=== PATIENT | female | born 1975 | race Caucasian/White ===

== ENCOUNTER 2023-12-25 16:31 | Emergency (ER) | payer OTHER, SELFPAY ==
[2023-12-25 16:35] VITALS: BP 122/80
[2023-12-25 17:05] LABS: % Basophils 0.6 % (0-2); % Immature Granulocytes 0.3 % (0-0.5); % Lymphocytes 28.9 % (20.5-51.1); % Monocytes 9.5 % (1.7-9.3); % Neutrophils 58.7 % (42.2-75.2); Absolute Eosinophils 0.1 10^3/uL (0-0.7); Absolute Lymphocytes 1.9 10^3/uL (1.2-3.4); Absolute Monocytes 0.6 10^3/uL (0.1-0.6); Absolute Neutrophils 3.9 10^3/uL (1.4-6.5); Hematocrit 38.4 % (37.0-47.0); Hemoglobin 13.4 g/dL (12.0-16.0); Mean Corp Hgb Conc. 34.9 g/dL (33.0-37.0); Mean Corpuscular Hgb 34.7 pg (27.0-31.0); Mean Corpuscular Volume 99.5 fL (81.0-99.0); Mean Platelet Volume 9.2 fL (7.4-10.4); Nucleated Red Blood Cells % 0 %; Platelet Count 239 10^3/uL (130-400); Red Blood Cell Count 3.86 10^6/uL (4.20-5.40); Red Cell Dist. Width 11.5 % (11.5-14.5); White Blood Cell Count 6.6 10^3/uL (4.8-10.8)
[2023-12-25 17:09] LABS: Urine Albumin Negative (Neg - Trace); Urine Bilirubin Negative (Negative); Urine Character Clear (Clear); Urine Color Amber; Urine Glucose Negative (Negative); Urine Ketone Negative (Negative); Urine Leukocyte Negative (Negative); Urine Nitrite Negative (Negative); Urine Occult Blood Negative (Negative); Urine Urobilinogen Negative (Neg - 1+)
[2023-12-25 17:20] LABS: ALT (SGPT) 22 U/L (0-35); AST (SGOT) 34 U/L (14-36); Albumin 5.3 g/dl (3.5-5.0); Alkaline Phosphatase 50 U/L (38-126); Blood Urea Nitrogen 17 mg/dl (7-17); Calcium 10.2 mg/dl (8.4-10.2); Carbon Dioxide 28 mmol/L (22-30); Chloride 97 mmol/L (98-107); Glucose 91 mg/dl (70-99); Potassium 3.9 mmol/L (3.5-5.1); Sodium 135 mmol/L (135-145); Total Bilirubin 0.5 mg/dl (0.2-1.3); Total Protein 7.6 g/dl (6.3-8.2); eGFR > 60.00
--- NOTE | 2023-12-25 17:35 | ED.GENMED ---
History of Present Illness
General
Chief Complaint: Visual Problem
Source: patient
Exam Limitations: none
Time Seen by Provider: 12/25/23 16:56
Nursing documentation reviewed up to this point in time: agreed with
History of Present Illness
History of Present Illness:
48 yr old female presents to the ER for evaluation. She reports in her past has had intermittent episodes of monthly fatigue. She reports she believes this is related to her menstrual cycle. She also reports that that her vision has been blurry
for the past several months but worse over the past week. She feels like she has trouble focusing. Today she had an episode of left hand tingling while exercising. She denies any associated chest pain/shortness of breath.. She has a history of
hypothyroidism but is on natural thyroid medication and a uterine ablation in 2020. She is on hormone replacement therapy. She does not smoke. She does report that her sister is a drug addict and she is under a lot of stress. In addition her
sister does have history of having recent VT and stroke and that was felt to be due to drug use.
She has been to her family doctor for intermittent complaints of fatigue blurred vision however was told it was depression. She does not have a good relationship and does not like her family doctor and has been reports this is why they came to the
ER today.
Review of Systems
Review of Systems
Allergies reviewed?: Yes
All Other Systems: ROS reviewed and negative except as documented in HPI and ROS
Constitutional: Reports fatigue; Denies fever or chills
Respiratory: Reports no symptoms
Cardiac: Reports no symptoms
ABD/GI: Reports no symptoms
: Reports no symptoms
Musculoskeletal: Reports no symptoms
Skin: Reports no symptoms
Neurological: Reports other (pt had left hand tingling ); Denies headache
Psychiatric: Reports no symptoms
Phy Exam
General Physical Exam
General Presentation: no apparent distress
General age: appears stated age
General Skin: warm and dry
General Habitus: normal
General Mental: alert
General Hydration: appears well hydrated
Eye Exam
Eye Exam: PERRL and EOMI
Eye Exam General: PERRL: bilateral and EOM intact: bilateral
Pupil Exam: Bilateral: round and reactive
Cardiovascular Exam
Cardiovascular Exam: regular rate/rhythm, no murmur and normal peripheral pulses
Pulmonary Exam
Pulmonary Exam: lungs clear and no respiratory distress
Neurological Exam
Neurological Exam: alert, oriented x3, no motor deficits, no sensory deficits and speech normal
[place] Coma Scale
Eye Opening: Spontaneous
Verbal Response: Oriented
Motor Response: Obeys Commands
GCS Total Score: 15
Cerebellar
Cerebellar Function: normal finger to nose
Musculoskeletal Exam
Musculoskeletal Exam: full ROM
Skin Exam
Skin Exam: normal color and warm/dry
Psychiatric Exam
Psychiatric Exam: normal mood/affect
Course
Orders/Labs/Results
Orders:
Orders
12/25/23 16:41
Urinalysis Reflex To Culture Urgent
Date Specimen was Collected: 12/25/23
Time Specimen was Collected: 16:42
12/25/23 16:48
Complete Blood Count/With Diff Urgent
Comprehensive Metabolic Panel Urgent
Free T4 Urgent
TSH Reflex To Free T4 Urgent
12/25/23 17:34
CT Head W/o Iv Contrast Urgent
Comment:
Reason For Exam: headache
12/25/23 17:35
Add On- LAB Urgent
Tests Added?: troponin
Electrocardiogram (*1) Stat
Reason for Study: Other
Other Reason for Exam: chest pain
Cardiac Monitoring- Treatment ONCE
EKG- Treatment ONCE
12/25/23 18:15
Troponin I Urgent
Comment: COLLECT. NO GREEN TOP IN LAB
Abnormal Lab Results
12/25/23
16:48
RBC 3.86 L 10^6/uL
(4.20-5.40)
MCV 99.5 H fL
(81.0-99.0)
MCH 34.7 H pg
(27.0-31.0)
Monocytes % 9.5 H %
(1.7-9.3)
Chloride 97 L mmol/L
(98-107)
Albumin 5.3 H g/dl
(3.5-5.0)
TSH (Reflex) 0.13 L uIU/ml
(0.47-4.68)
Free T4 0.70 L ng/dl
(0.78-2.19)
12/25/23 16:48
12/25/23 16:48
Vital Signs
Initial and Last Documented VS:
Initial Vital Signs
Temp Pulse Resp BP Pulse Ox
98.6 F 86 18 122/80 100
12/25/23 16:35 12/25/23 16:35 12/25/23 16:35 12/25/23 16:35 12/25/23 16:35
Last Documented Vital Signs
Temp Pulse Resp BP Pulse Ox
98.6 F 79 13 111/72 97
12/25/23 16:35 12/25/23 19:30 12/25/23 19:30 12/25/23 19:00 12/25/23 19:30
Monogram Machine Operator consulted with Physician
Monogram Machine Operator consulted with physician?: Yes
Name of Physician Consulted: Mary
MDM/Problems Addressed
MDM/Problems Addressed:
Patient is a 48-year-old female who presents with multiple complaints including fatigue difficulty focusing left hand tingling blurry vision. She reports she has had issues with this intermittent fatigue occasionally and has related that to her
hormones and menses. She has had blurred vision for the past couple weeks. She does not like her family doctor and was told this was depression in the past and therefore presented here to the ER. She presents however awake alert no acute distress
she is afebrile with a normal white count stable hemoglobin. With complaints CAT scan of head was done and negative urinalysis negative and EKG is negative. Patient has no cardiac history but sister who is a drug abuser did have VT. Patient has
no chest pain and cardiac troponin is negative. TSH is low patient is taking natural thyroid medication I did review this with patient this will need outpatient follow-up.
Patient feels that she is under a lot of stress and her sister.
There are no acute concerning findings during workup here in the ER. Case reviewed with ED physician will DC home with outpatient follow-up. Patient request specific names of local family doctors which I did give her in addition we will DC with
neurology follow-up
*Radiology
Radiology exam reviewed: radiology read reviewed
*Critical Care Note
Total Time (30-74mins, 75-104mins- exclusive of procedures): Not Applicable
ED Attending Note
-
Portions of this chart may have been created with voice recognition software.� Occasional wrong word or��sound alike� substitutions may have occurred due to the inherent limitations of voice recognition software.
Discharge Plan
Departure
Patient Disposition: Home (Routine Discharge)
Date of Disposition: 12/25/23
Time of Disposition: 19:19
Patient with high blood pressure during this ER visit?: No
Condition: Fair
Covid-19: Not Applicable
Discharge Problem:
Fatigue
Instructions: Fatigue (DC)
Referrals:
Hema Sanchez DO [Community] -
Nisha Mendez NP [Family Provider] -
Patti Jenkins DO [Active] -
Zandra Haddad DO [Active] -
Activity Restrictions/Additional Instructions:
As discussed follow-up with family practice and neurology. Return if any worsening of symptoms.
Interventions
Interventions:
*Risk Screen - Suicide Last Done: 12/25/23 18:04
*General Assessment Last Done: 12/25/23 18:04
*Neglect/Abuse Screening Last Done: 12/25/23 18:04
ED- Fall Risk Assessment Last Done: 12/25/23 18:04
*ED COVID-19 Vaccine History Last Done: 12/25/23 18:04
*Nursing Disposition Last Done: 12/25/23 19:45
ED- Neurological Assessment Last Done: 12/25/23 18:04
ED-EENT Assessment Last Done: 12/25/23 18:04
Discharge Date and Time
Discharge Date/Time: 12/25/23 19:50
Print Language: NAURUAN
[2023-12-25 17:51] LABS: TSH Reflex To Free T4 0.13 uIU/ml (0.47-4.68)
[2023-12-25 18:04] VITALS: BMI 19.5
[2023-12-25 18:18] VITALS: BP 117/86
[2023-12-25 18:52] LABS: Troponin I < 0.012 ng/ml
[2023-12-25 19:00] VITALS: BP 111/72
== END 2023-12-25 19:50 | disposition home or self-care (01) ==
LOC: EMR 16:31
PROVIDERS: EMERGENCY PHYSICIAN Emergency Medicine; FAMILY PHYSICIAN Nurse Practitioner Adult Health
DX: R53.83 Other fatigue (principal)
CPT/HCPCS: 99285; 70450; 80053; 81003; 84439; 84443; 84484; 85025; 93005

== ENCOUNTER → 2025-04-29 12:59 | Outpatient (REF) | payer BC, SELFPAY | LOC: HWRAD 12:59 | PROVIDERS: ATTENDING PHYSICIAN Otolaryngology; FAMILY PHYSICIAN Internal Medicine | DX: J32.0 Chronic maxillary sinusitis (principal) | CPT/HCPCS: 70486 ==